=== PATIENT | female | born 1965 | race Caucasian/White ===

== ENCOUNTER 2025-08-04 18:49 | Emergency (ER) | payer OTHER ==
[2025-08-04 19:47] LABS: Glucose, Urine (Dipstick) Negative (Negative); Leukocyte Small (Negative); Protein, Urine (Dipstick) Negative (Neg-Trace); Specific Gravity, Urine 1.020 (1.005-1.030)
[2025-08-04 20:05] LABS: RBC/HPF 0-3 HPF (0-3)
[2025-08-04 20:06] LABS: Bacteria/HPF 2+ HPF (None Seen); CAUTI Indications for Culture Dysuria,urgency,freq; Mucous/LPF 1+ LPF (<2+)
[2025-08-04 20:07] LABS: Urine Culture Reflex Yes Yes
[2025-08-04] MEDS ORDERED: Clindamycin 150 MG CAP ONE (20:17)
[2025-08-04] MEDS ORDERED: Cephalexin 500 MG CAP ONE (20:18)
== END 2025-08-04 20:30 | disposition home or self-care (01) ==
LOC: NAV ERS 18:49
DX: L03.211 Cellulitis of face (principal); N30.00 Acute cystitis without hematuria; I10 Essential (primary) hypertension; Z79.899 Other long term (current) drug therapy
CPT/HCPCS: 81001; 87086; 99283